=== PATIENT | female | born 1975 | race Caucasian/White ===

== ENCOUNTER → 2017-08-05 | Outpatient (CLI) | payer OTHER ==
[~2017-08-05] MED LIST: CLON0.5T3 PO; FAMO20TA42 PO; HYOS0.1217 PO; NORG1TAB69 PO; PARO40TA2 PO
--- NOTE | 2017-08-06 19:35 | Diagnostic Imaging Report ---
Bilateral screening mammogram 2D views with tomosynthesis The current study was also evaluated with a Computer Aided Detection (CAD) system. INDICATION: Screening. No current complaints stated on the questionnaire. COMPARISON: 05/02/2016. FINDINGS: The breasts are composed of heterogeneously dense parenchyma which may decrease mammographic sensitivity. Allowing for technique and positional differences, no suspicious change is seen. IMPRESSION: Dense breasts with no definite change. ACR BI-RADS Category 2: Benign findings. Result letter will be mailed to the patient. Note: At least 10% of breast cancer is not imaged by mammography. Dictated by: Dictated on workstation # [id number]
== END ==
LOC: RAD 11:00
PROVIDERS: ATTEND Nurse Practitioner Family
DX: Z12.31 Encounter for screening mammogram for malignant neoplasm of breast (principal)
CPT/HCPCS: 77067

== ENCOUNTER → 2018-12-17 | Outpatient (CLI) | payer OTHER ==
--- NOTE | 2018-12-17 19:00 | Diagnostic Imaging Report ---
INDICATION: Routine screening. COMPARISON: Comparison is made with prior mammograms from 08/05/2017 and 05/02/2016. TECHNIQUE: 2D and 3D bilateral screening mammography was performed with computer-aided detection (CAD) system. FINDINGS: Both breasts remain heterogeneously dense, limiting the sensitivity of mammography. No spiculated mass or malignant appearing microcalcifications are seen. Axillae are unremarkable. Intraparenchymal lymph nodes in the upper-outer aspects of both breasts are noted. IMPRESSION: No mammographic features suspicious for malignancy are identified. ACR BI-RADS Category 2: Benign findings. Result letter will be mailed to the patient. Note: At least 10% of breast cancer is not imaged by mammography. Dictated by: Dictated on workstation # [id number]
== END ==
LOC: RAD 11:54
PROVIDERS: ATTEND Registered Nurse
DX: Z12.31 Encounter for screening mammogram for malignant neoplasm of breast (principal)
CPT/HCPCS: 77067

== ENCOUNTER 2019-04-23 16:38 | Emergency (ER) | payer SELFPAY ==
[~2019-04-23] VITALS: Ht 162.6 cm; Wt 63.5 kg
[2019-04-23] MEDS ORDERED: KETOROLAC 30 MG/ML VIAL IVP ONE (17:30)
[2019-04-23] MEDS ORDERED: fentaNYL INJECTION 100 MCG/2 ML AMP IVP ONE (17:30)
--- NOTE | 2019-04-23 17:31 | ED Abdominal Pain ---
General Chief Complaint: Abdominal/GI Problems Stated Complaint: ABD PAIN Nursing Triage Note: AMB TO ROOM WAS SENT FROM [facility] WITH LOW ABD PAIN SINCE 04/12 PER [facility] HER LAB WORK HAS BEEN NEG. SENT TODAY BECAUSE HR WAS 100. PATIENT REPORTS NO VOMITIING TODAY HAD DIARHEA LAST WEEK. Sepsis Screen: No Definite Risk Source of Information: Patient Exam Limitations: No Limitations History of Present Illness Date Seen by Provider: April 23, 2019 Time Seen by Provider: 17:29 Initial Comments To ER from [facility] in [place] with reports of worsening suprapubic abdominal pain since 04/12/19. No fevers or chills. She initially had some diarrhea but that has subsided, bowel movements have returned to normal. She denies any vaginal discharge, she denies any menstrual bleeding, she is on the Depo-Provera shot. She does have a history of anxiety and irritable bowel syndrome but this feels different. Timing/Duration: Constant, Getting Worse Severity/Quality: Moderate Location: Suprapubic Radiation: No Radiation Activities at Onset: None Allergies and Home Medications Allergies Coded Allergies: No Known Drug Allergies (Unverified , 01/09/13) Home Medications Clonazepam 0.5 Mg Tablet, 0.5-1 EACH PO BID, (Reported) Dicyclomine HCl 20 Mg Tablet, 20 MG PO TID Prescribed by: AVE GURROLA on 04/23/191910 Famotidine 20 Mg Tab.chew, 20 MG PO BID, (Reported) Hyoscyamine Sulfate 0.125 Mg/Tab Tab.rapdis, 1-2 EACH PO Q6HR PRN, (Reported) Norgestimate-Ethinyl Estradiol 1 Each Tablet, 1 EACH PO DAILY, (Reported) Paroxetine Hcl 40 Mg Tablet, 80 MG PO DAILY, (Reported) Patient Home Medication List Home Medication List Reviewed: Yes Review of Systems Review of Systems Constitutional: see HPI EENTM: No Symptoms Reported Respiratory: No Symptoms Reported Cardiovascular: No Symptoms Reported Gastrointestinal: See HPI, Abdominal Pain, Diarrhea, Nausea; Denies Vomiting Genitourinary: No Symptoms Reported Musculoskeletal: no symptoms reported Skin: no symptoms reported Psychiatric/Neurological: No Symptoms Reported Endocrine: No Symptoms Reported Past Cfjizsr-Bcfqga-Rdumgn Hx Patient Social History Alcohol Use: Denies Use Recreational Drug Use: No Smoking Status: Never a Smoker Recent Foreign Travel: No Contact w/Someone Who Travel: No Recent Infectious Disease Expo: No Past Medical History Surgeries: Yes (LEEP) Cardiac: No Neurological: No Gastrointestinal: Yes ("NERVOUS STOMACH") Psychosocial: Yes Anxiety Physical Exam Vital Signs Vital Signs - First Documented 04/23/19 16:55 Temp 98.2 Pulse 86 Resp 18 B/P (MAP) 111/72 (85) O2 Delivery Room Air Capillary Refill : Less Than 3 Seconds Height/Weight/BMI Height: 5'4.00" Weight: 140lbs. oz. 63.593048hm; BMI Method:Stated General Appearance: WD/WN, no apparent distress HEENT: PERRL/EOMI, normal ENT inspection Respiratory: no respiratory distress, no accessory muscle use Cardiovascular: regular rate, rhythm, no murmur Gastrointestinal: normal bowel sounds, soft, tenderness Extremities: normal range of motion, non-tender Neurologic/Psychiatric: alert, normal mood/affect, oriented x 3 Skin: normal color, warm/dry Progress/Results/Core Measures Results/Orders Lab Results Laboratory Tests Test 04/23/19 17:19 04/23/19 17:55 Range/Units Urine Color YELLOW Urine Clarity CLEAR Urine pH 7 5-9 Urine Specific Mcdowell 1.005 L 1.016-1.022 Urine Protein NEGATIVE NEGATIVE Urine Glucose (UA) NEGATIVE NEGATIVE Urine Ketones 1+ H NEGATIVE Urine Nitrite NEGATIVE NEGATIVE Urine Bilirubin NEGATIVE NEGATIVE Urine Urobilinogen NORMAL NORMAL MG/DL Urine Leukocyte Esterase NEGATIVE NEGATIVE Urine RBC (Auto) 1+ H NEGATIVE Urine RBC 0-2 /HPF Urine WBC NONE /HPF Urine Squamous Epithelial Cells 2-5 /HPF Urine Crystals NONE /LPF Urine Bacteria NEGATIVE /HPF Urine Casts NONE /LPF Urine Mucus NEGATIVE /LPF Urine Culture Indicated NO Urine Test NEGATIVE NEGATIVE White Blood Count 7.2 4.3-11.0 10^3/uL Red Blood Count 4.26 L 4.35-5.85 10^6/uL Hemoglobin 13.5 11.5-16.0 G/DL Hematocrit 38 35-52 % Mean Corpuscular Volume 90 80-99 FL Mean Corpuscular Hemoglobin 32 25-34 PG Mean Corpuscular Hemoglobin Concent 35 32-36 G/DL Red Cell Distribution Width 11.5 10.0-14.5 % Platelet Count 241 130-400 10^3/uL Mean Platelet Volume 10.0 7.4-10.4 FL Neutrophils (%) (Auto) 60 42-75 % Lymphocytes (%) (Auto) 33 12-44 % Monocytes (%) (Auto) 7 0-12 % Eosinophils (%) (Auto) 0 0-10 % Basophils (%) (Auto) 0 0-10 % Neutrophils # (Auto) 4.3 1.8-7.8 X 10^3 Lymphocytes # (Auto) 2.4 1.0-4.0 X 10^3 Monocytes # (Auto) 0.5 0.0-1.0 X 10^3 Eosinophils # (Auto) 0.0 0.0-0.3 10^3/uL Basophils # (Auto) 0.0 0.0-0.1 10^3/uL Sodium Level 140 135-145 MMOL/L Potassium Level 4.0 3.6-5.0 MMOL/L Chloride Level 108 H 98-107 MMOL/L Carbon Dioxide Level 21 21-32 MMOL/L Anion Gap 11 5-14 MMOL/L Blood Urea Nitrogen 8 7-18 MG/DL Creatinine 1.05 0.60-1.30 MG/DL Estimat Glomerular Filtration Rate 58 BUN/Creatinine Ratio 8 Glucose Level 90 70-105 MG/DL Calcium Level 9.7 8.5-10.1 MG/DL Corrected Calcium 9.3 8.5-10.1 MG/DL Total Bilirubin 1.0 0.1-1.0 MG/DL Aspartate Amino Transf (AST/SGOT) 19 5-34 U/L Alanine Aminotransferase (ALT/SGPT) 12 0-55 U/L Alkaline Phosphatase 67 40-136 U/L Total Protein 7.4 6.4-8.2 GM/DL Albumin 4.5 3.2-4.5 GM/DL My Orders Orders - AVE GURROLA [employer] OFFICER Cbc With Automated Diff (04/23/19 17:28) Comprehensive Metabolic Panel (04/23/19 17:28) Ua Culture If Indicated (04/23/19 17:28) Ed Iv/Invasive Line Start (04/23/19 17:28) Ct Abdomen/Pelvis W (04/23/19 17:28) Ketorolac Injection (Toradol Injection) (04/23/19 17:30) Fentanyl Injection (Sublimaze Injection (04/23/19 17:30) Hcg,Qualitative Urine (04/23/19 17:50) Lorazepam Injection (Ativan Injection) (04/23/19 18:15) Iohexol Injection (Omnipaque 350 Mg/Ml 1 (04/23/19 18:30) Received Contrast (Hold Metformin- Contr (04/23/19 18:30) Sodium Chloride Flush (Catheter Flush Sy (04/23/19 18:30) Ns (Ivpb) (Sodium Chloride 0.9% Ivpb Bag (04/23/19 18:30) Medications Given in ED Current Medications Medications Dose Ordered Sig/Yobani Route Start Time Stop Time Status Last Admin Dose Admin Fentanyl Citrate 50 mcg ONCE ONCE IVP 04/23/19 17:30 04/23/19 17:31 DC 04/23/19 17:46 50 MCG Iohexol 100 ml ONCE ONCE IV 04/23/19 18:30 04/23/19 18:31 DC 04/23/19 18:49 80 ML Ketorolac Tromethamine 15 mg ONCE ONCE IVP 04/23/19 17:30 04/23/19 17:31 DC 04/23/19 17:45 15 MG Lorazepam 0.5 mg ONCE PRN IVP 04/23/19 18:15 04/23/19 18:15 0.5 MG Sodium Chloride 10 ml NEEDED PRN IV 04/23/19 18:30 04/23/19 18:49 10 ML Sodium Chloride 100 ml ONCE ONCE IV 04/23/19 18:30 04/23/19 18:31 DC 04/23/19 18:49 84 ML Vital Signs/I&O 04/23/19 16:55 Temp 98.2 Pulse 86 Resp 18 B/P (MAP) 111/72 (85) O2 Delivery Room Air Blood Pressure Mean: 85 Departure Communication (Admissions) 1918-reports that she is feeling overall better. I suspect this is an exacerbation of her irritable bowel syndrome. She has never tried dicyclomine before so I'll give her a prescription for that. Impression Primary Impression: abdominal pain Additional Impression: Anxiety Disposition: 01 HOME, SELF-CARE Condition: Stable Departure-Patient Inst. Decision time for Depature: 19:10 Referrals: [facility] (PCP/Family) Primary Care Physician Patient Instructions: Irritable Bowel Syndrome (DC) Add. Discharge Instructions: 1. Take the new medication as directed. Do not take the Levsin, take the dicyclomine. Follow-up with your doctor next week All discharge instructions reviewed with patient and/or family. Voiced understanding. Scripts Dicyclomine HCl (Dicyclomine HCl) 20 Mg Tablet 20 MG PO TID, #30 TAB Prov: AVE GURROLA APRN 04/23/19 [address] GURROLA APRN April 23, 2019 17:31
[2019-04-23 17:35] LABS: BILIRUBIN,URINE NEGATIVE (NEGATIVE); CLARITY,URINE CLEAR; COLOR,URINE YELLOW; GLUCOSE, URINE (UA) NEGATIVE (NEGATIVE); KETONES,URINE 1+ (NEGATIVE); LEUKOCYTE ESTERASE ,URINE NEGATIVE (NEGATIVE); NITRITE,URINE NEGATIVE (NEGATIVE); PH,URINE 7 (5-9); PROTEIN,URINE NEGATIVE (NEGATIVE); UROBILINOGEN,URINE NORMAL (NORMAL)
[2019-04-23 17:49] LABS: BACTERIA,URINE NEGATIVE /HPF; RBC,URINE 0-2 /HPF
--- NOTE | 2019-04-23 17:51 | NUR ---
LAB HERE TO DRAW BLOOD.
[2019-04-23 18:03] LABS: BASOPHILS % (AUTO) 0 % (0-10); EOSINOPHILS % (AUTO) 0 % (0-10); HEMATOCRIT 38 % (35-52); HEMOGLOBIN 13.5 G/DL (11.5-16.0); LYMPHOCYTES # (AUTO) 2.4 X 10^3 (1.0-4.0); LYMPHOCYTES % (AUTO) 33 % (12-44); MEAN CORPUSCULAR HEMOGLOBIN 32 PG (25-34); MEAN CORPUSCULAR HGB CONC 35 G/DL (32-36); MEAN CORPUSCULAR VOLUME 90 FL (80-99); MONOCYTES # (AUTO) 0.5 X 10^3 (0.0-1.0); MONOCYTES % (AUTO) 7 % (0-12); NEUTROPHILS # (AUTO) 4.3 X 10^3 (1.8-7.8); NEUTROPHILS % (AUTO) 60 % (42-75); PLATELET COUNT 241 10^3/uL (130-400); RED CELL DISTRIBUTION WIDTH 11.5 % (10.0-14.5); WHITE BLOOD COUNT 7.2 10^3/uL (4.3-11.0)
--- NOTE | 2019-04-23 18:10 | NUR ---
FAMILY TO DESK STATES PATIENT IS FEELING ANXIOUS AND WOULD LIKE SOMETHING FOR HER NERVES.
[2019-04-23] MEDS ORDERED: LORazepam INJ 2 MG/ML (ATIVAN) VIAL IVP PRN (18:15)
--- NOTE | 2019-04-23 18:20 | NUR ---
TO CT PER W/C
[2019-04-23 18:24] LABS: ALBUMIN 4.5 GM/DL (3.2-4.5); CALCIUM 9.7 MG/DL (8.5-10.1); CREATININE SERUM 1.05 MG/DL (0.60-1.30); TOTAL PROTEIN 7.4 GM/DL (6.4-8.2)
[2019-04-23] MEDS ORDERED: NS 100 ML (IVPB) BAG IV ONE (18:30)
[2019-04-23] MEDS ORDERED: HOLD METFORMIN - RECEIVED CONTRAST 20 ML VIAL IV SCH (18:30)
[2019-04-23] MEDS ORDERED: IOHEXOL 350 MG/ML 100 ML (OMNIPAQUE 350) VIAL IV ONE (18:30)
[2019-04-23] MEDS ORDERED: CATHETER FLUSH 10 ML SYR IV PRN (18:30)
--- NOTE | 2019-04-23 19:05 | Diagnostic Imaging Report ---
PROCEDURE: CT abdomen and pelvis with contrast. TECHNIQUE: Multiple contiguous axial images were obtained through the abdomen and pelvis after administration of intravenous contrast. Auto Exposure Controls were utilized during the CT exam to meet ALARA standards for radiation dose reduction. INDICATION: Abdominal pain, vomiting, diarrhea x10-11 days. CORRELATION STUDY: None. FINDINGS: LOWER THORAX: Clear. LIVER: Unremarkable. GALLBLADDER: Present and unremarkable. No bile duct dilatation. SPLEEN: Unremarkable. PANCREAS: Unremarkable. ADRENAL GLANDS: Unremarkable. KIDNEYS: Normal configuration. No calcification or obstruction. ABDOMINAL AORTA: Unremarkable, nonaneurysmal. GASTROINTESTINAL TRACT: Stomach is relatively collapsed. Small bowel without obstruction. Colon demonstrates mild severity fecal retention. No obstruction or definitive inflammatory changes. The appendix is not well visualized but what may be the appendix has an unremarkable appearance. No definitive right lower quadrant inflammatory changes. No abdominal ascites or free air. URINARY BLADDER: Unremarkable. REPRODUCTIVE: Uterus unremarkable. Probable small right ovarian cyst. OSSEOUS STRUCTURES: No acute abnormality. OTHER: None. IMPRESSION: 1. No CT findings to suggest acute abnormality about the abdomen and/or pelvis. The appendix is not definitively localized and therefore not cleared. Dictated by: Dictated on workstation # [id number]
[2019-04-23] MEDS ORDERED: DICY20TA10 PO (19:11)
[2019-04-23 19:30] VITALS: BP 112/79
== END 2019-04-23 19:32 | disposition home or self-care (01) ==
LOC: EDUNIT# 16:38 → ER 16:39
DX: R10.30 Lower abdominal pain, unspecified (principal); F41.9 Anxiety disorder, unspecified; K58.9 Irritable bowel syndrome, unspecified; Z98.890 Other specified postprocedural states
CPT/HCPCS: 36415; 74177; 80053; 81000; 84703; 85025; 96374; 96375

== ENCOUNTER → 2019-05-04 | Outpatient (CLI) | payer OTHER ==
[~2019-05-04] MED LIST changes: +DICY20TA10 PO
--- NOTE | 2019-05-04 23:13 | Diagnostic Imaging Report ---
PROCEDURE: US NONOB transvaginal. TECHNIQUE: Multiple real-time grayscale images were obtained of the pelvis in various projections endovaginally. INDICATION: Lower abdominal pain There are no prior ultrasound examinations available for comparison. The CT abdomen/pelvis exam of 04/23/2019 failed to show any sign of an acute abnormality. On this study, the uterus is nongravid and not enlarged. The endometrial lining is not thickened measuring 2 MM.. Neither ovary was identified. The adnexa were partially obscured by bowel gas. There is no solid pelvic mass or free fluid collection evident. IMPRESSION: 1. There is no evidence for an acute pelvic abnormality. 2. The ovaries could not be visualized. Dictated by: Dictated on workstation # [id number]
== END ==
LOC: RAD 14:30
PROVIDERS: ATTEND Nurse Practitioner Family
DX: R10.30 Lower abdominal pain, unspecified (principal)
CPT/HCPCS: 76830

== ENCOUNTER → 2019-05-19 | Outpatient (CLI) | payer OTHER ==
--- NOTE | 2019-05-19 14:49 | Diagnostic Imaging Report ---
PROCEDURE: US Gallbladder. TECHNIQUE: Multiple real-time grayscale images were obtained over the right upper quadrant in various projections. INDICATION: Nausea, vomiting, and abdominal pain. FINDINGS: The liver is normal in size at 15.1 cm. No discrete mass is identified. The portal vein is patent and shows normal direction of flow. The gallbladder is without stones or sludge. No wall thickening or biliary ductal dilatation is seen. The pancreas is unremarkable. Right kidney is without calculi or hydronephrosis. There is no ascites. IMPRESSION: No evidence of cholelithiasis or acute cholecystitis. Dictated by: Dictated on workstation # [id number]
== END ==
LOC: RAD 12:00
PROVIDERS: ATTEND Surgery
DX: R10.9 Unspecified abdominal pain (principal); R11.2 Nausea with vomiting, unspecified
CPT/HCPCS: 76705

== ENCOUNTER → 2019-05-27 | Outpatient (CLI) | payer OTHER ==
[~2019-05-27] MED LIST changes: +ACHD5005 PO; +CATHETER FLUSH 10 ML SYR IV PRN; +MEDR150V IM
--- NOTE | 2019-05-27 13:11 | Diagnostic Imaging Report ---
INDICATION: Biliary dyskinesia. COMPARISON: None. Tc-99m Choletec 4.91 mCi IV followed by 8 ounces of Ensure. FINDINGS: The upper abdomen was imaged for 60 minutes with the gamma camera. There is normal appearance of activity in the liver. There is activity in the gallbladder by 60 minutes. After 60 minutes, the patient received 8 ounces of oral Ensure. After 60 minutes of additional imaging, the gallbladder ejection fraction was calculated to be 90% which is normal. IMPRESSION: Normal hepatobiliary study with GBEF of 90%. Dictated by: Dictated on workstation # [id number]
== END ==
LOC: CARD 09:01
PROVIDERS: ATTEND Surgery
DX: K82.8 Other specified diseases of gallbladder (principal)
CPT/HCPCS: 78227

== ENCOUNTER → 2019-06-02 | Outpatient (CLI) | payer OTHER ==
[~2019-06-02] MED LIST changes: -CATHETER FLUSH 10 ML SYR IV PRN
== END | disposition home or self-care (01) ==
LOC: PREOP 10:42
PROVIDERS: ATTEND Surgery
DX: Z01.818 Encounter for other preprocedural examination (principal)

== ENCOUNTER 2019-06-03 08:24 | Day surgery (SDC) | payer OTHER ==
[2019-06-03] VITALS (15 sets, daily range): BP systolic 97–114; BP diastolic 48–82
[~2019-06-03] VITALS: Ht 162.6 cm; Wt 61.2 kg
[~2019-06-03 08:24] MED LIST changes: -ACHD5005 PO; -MEDR150V IM
[2019-06-03] MEDS ORDERED: MEDR150V IM (09:02)
[2019-06-03] MEDS ORDERED: IOPAMIDOL 61% 30 ML (ISOVUE 300) VIAL IV ONE (09:04)
[2019-06-03] MEDS ORDERED: BUP/EPI 0.5% 1:200,000 (SENSORCAINE) 30 ML VIAL ONE (09:04)
[2019-06-03] MEDS ORDERED: ceFAZolin 2 GM/50 ML NS 50 ML ONE (09:12)
[2019-06-03] MEDS ORDERED: ROCURONIUM 10 MG/ML 5 ML SYRINGE IV ONE (09:19)
[2019-06-03] MEDS ORDERED: ONDANSETRON 4 MG/2 ML (SDV) Z0FRAN ONE (09:19)
[2019-06-03] MEDS ORDERED: DEXAMETHASONE 10 MG/ML (DECADRON) 1 ML VIAL ONE (09:19)
[2019-06-03] MEDS ORDERED: GLYCOPYRROLATE 0.2 MG/ML (ROBINUL) 2 ML VIAL ONE (09:19)
[2019-06-03] MEDS ORDERED: SEVOFLURANE (ULTANE) 15 ML INHAL SOLN ONE (09:19)
[2019-06-03] MEDS ORDERED: NEOSTIGMINE 3 MG/3 ML VIAL ONE (09:19)
[2019-06-03] MEDS ORDERED: fentaNYL INJECTION 100 MCG/2 ML AMP ONE (09:19)
[2019-06-03] MEDS ORDERED: proPOfol 200 MG/20 ML (DIPRIVAN) VIAL IV ONE (09:19)
[2019-06-03] MEDS ORDERED: MIDAZOLAM 2 MG/2 ML (VERSED) VIAL ONE (09:19)
[2019-06-03] MEDS ORDERED: LIDOCAINE PF 2% 5 ML (XYLOCAINE) VIAL ONE (09:19)
--- NOTE | 2019-06-03 09:25 | Progress Note-Pre Operative ---
Pre-Operative Progress Note H&P Reviewed The H&P was reviewed, patient examined and no changes noted. Time Seen by Provider: 09:21 Date H&P Reviewed: Jun 03, 2019 Time H&P Reviewed: 09:22 Pre-Operative Diagnosis: Biliary Dyskinesia KODI BANKS DO Jun 03, 2019 09:25
[2019-06-03] MEDS: LACTATED RINGERS 1,000 ML IV PRN ×2 (09:30→10:05)
[2019-06-03] MEDS ORDERED: morphine INJ 10 MG/ML 1ML (SYR OR VIAL) ONE (10:31)
--- NOTE | 2019-06-03 10:33 | Progress Note-Post Operative ---
Post-Operative Progess Note Surgeon (s)/Corrections Lieutenant (s) Surgeon KODI BANKS DO Corrections Lieutenant: Isaias Pre-Operative Diagnosis Biliary Dyskinesia Post-Operative Diagnosis same Procedure & Operative Findings Date of Procedure 06/03/19 Procedure Performed/Findings Lap Aruan with IOC Anesthesia Type GET Estimated Blood Loss Estimated blood loss (mL): scant Specimens/Packing Specimens Removed GB and contents KODI BANKS DO Jun 03, 2019 10:33
[2019-06-03] MEDS ORDERED: ACHD5005 PO (10:35)
--- NOTE | 2019-06-03 10:36 | Discharge Inst-Surgical ---
Discharge Inst-Surgical Depart Medication/Instructions New, Converted or Re-Newed RX: RX Given to Pt/Family Patient Instructions Follow up Appt: Make appointment for 1 week. [phone] Instructions: No lifting greater than 20 pounds. No strenuous activity. May shower in 24 hours, no tub bath or soaking. Use incentive spirometer at home as directed. No Smoking Skin/Wound Care: May remove bandages in am. You need to leave the Dermabond on incision it will fall off on it's own. Symptoms to Report: Appetite Changes, Extremity Discoloration, Numbness/Tingling, Swelling Increased, Bleeding Excessive, Eyesight Changes, Pain Increased, Urine Color Change, Constipation(Persistent), Fever over 101 degree F, Pain/Pressure in chest, Urinating Difficulty, Cough Up/Vomit Blood, Heart Beat Irreg/Pounding, Pain/Pressure in jaw, Cramps in feet or legs, Lightheadedness, Pain/Pressure in shoulder, Diarrhea(Persistent), Memory Changes Suddenly, Questions/Concerns, Weight gain consecutive days, Dizziness/Fainting, Nausea/Vomiting, Shortness of Breath, Weight gain over 2 pounds If questions or concerns contact your physician Or seek help at emergency department. Activity Activity as Tolerated: Yes Activity Instructions: Avoid Stress to Incision Driving Instructions: No Driving/Refer to Diet Discharge Diet: Avoid Fatty Foods, Low Fat/Low Cholesterol Diet After 24 Hours: Clear Liquid if Nauseous If Any Problems/Questions/Issu: Contact Your Physician, Go to Emergency Room Skin/Wound Care Infection Signs and Symptoms: Increased Redness, Foul Odor of Wound, Increased Drainage, Skin Itchy or Has a Rash, Increased Swelling, Temperature Above 101 F Wound Care Comment: Heating pad to neck or shoulder tonight for pain Bathing Instructions: Shower Stitches/[place]/Dermabond Dis: Dermabond Ice Pack: Ice On and Off Site KODI BANKS DO Jun 03, 2019 10:36
[2019-06-03] MEDS ORDERED: HYDROmorphone 2 MG/ML VIAL (DILAUDID) IV ONE (10:45)
[2019-06-03] MEDS ORDERED: morphine INJ 10 MG/ML 1ML (SYR OR VIAL) IVP ONE (10:45)
[2019-06-03] MEDS ORDERED: ONDANSETRON 4 MG/2 ML (SDV) Z0FRAN IVP PRN (10:45)
--- NOTE | 2019-06-03 12:00 | NUR ---
PT RETURNED FROM RECOVERY WITH FAST BREATHING (HYPERVENTILATING), CRYING, AND MOANING "IT HURTS SO BAD". PT'S ABDOMEN WAS SOFT, PROCEDURAL SITES CLEAN AND DRY, NO DRAINAGE NOTED. TALKED PT THROUGH SLOW, DEEP, RELAXING BREATHS, HELPED PT CHANGE POSITION AND GOT HER WARM BLANKETS. PT'S BREATHING SLOWED TO 16-18, BUT SHE STATED SHE WAS STILL HURTING. CALLED DR. BANKS AND RECEIVED VERBAL TELEPHONE ORDER FOR HYDROCODONE 5/325 PO TWO TABLETS, ONCE.
[2019-06-03] MEDS ORDERED: HYDROcodone/APAP 5 MG/325 MG (LORTAB) TAB ONE (12:09)
[2019-06-03] MEDS ORDERED: HYDROcodone/APAP 5 MG/325 MG (LORTAB) TAB PO ONE (12:15)
--- NOTE | 2019-06-03 12:35 | NUR ---
CALLED RT AT THIS TIME AND THEY STATED THEY WOULD BE HERE SHORTLY FOR I.S. TEACHING
--- NOTE | 2019-06-03 12:49 | Anesthesia-General Post-Op ---
General Patient Condition Mental Status/LOC: Same as Preop Cardiovascular: Satisfactory Nausea/Vomiting: Absent Respiratory: Satisfactory Pain: Controlled Complications: Absent Post Op Complications Complications None Follow Up Care/Instructions Patient Instructions None needed. Anesthesia/Patient Condition Patient Condition Patient is doing well, no complaints, stable vital signs, no apparent adverse anesthesia problems. No complications reported per nursing. RIKI CANELA CRNA Jun 03, 2019 12:49
--- NOTE | 2019-06-03 13:00 | NUR ---
PT GOT UP TO GO TO BATHROOM, PT IS ABLE TO MOVE AND STAND WITHOUT ANY FACIAL GRIMACING OR MOANING. PT AMBULATED MCC TO BATHROOM WITH SLOW, STEADY GAIT AND THEN STATED "I'M SUPER LIGHT HEADED, I DONT FEEL GOOD". TOOK PT TO BATHROOM IN WC AND PT URINATED WITHOUT COMPLICATION. PT TAKEN BACK TO BED VIA WC AND LAID BACK DOWN, HOOKED TO [facility] AND VSS. MARLA.
--- NOTE | 2019-06-03 13:20 | NUR ---
RT AT BEDSIDE FOR I.S. TEACHING
--- NOTE | 2019-06-03 13:43 | Diagnostic Imaging Report ---
Indication: Fluoroscopy during intraoperative cholangiogram. Fluoroscopy was provided in the OR during intraoperative cholangiogram. 12 seconds of fluoroscopy was utilized. Images demonstrate contrast being injected via the cystic duct remnant. Intrahepatic and extrahepatic bile ducts are unremarkable. No filling defects are seen. There is contrast flowing into the duodenum. Impression: Fluoroscopy during intraoperative cholangiogram. Dictated by: Dictated on workstation # [id number]
--- NOTE | 2019-06-03 14:18 | NUR ---
PT IS AA&OX4, VSS, NADN. SITTING UP IN BED, TALKING TO STAFF, FAMILY, AND ANSWERING QUESTIONS APPROPRIATELY. NO FACIAL GRIMACING, NO MOANING FROM PAIN. PT STATES "I JUST DONT FEEL GOOD. I WANT TO LAY HERE JUST A LITTLE BIT LONGER.". GAVE PT FRESH WATER AND A SNO-CONE, PT TOLERATING BOTH WITHOUT COMPLICATION.
--- NOTE | 2019-06-03 14:25 | NUR ---
PT URINATED AGAIN, WENT TO BATHROOM VIA WC, AMBULATED FROM BED TO WHEELCHAIR AND BACK WITH STEADY GAIT. PT STATES "I'M READY TO TRY AND GET DRESSED NOW"
--- NOTE | 2019-06-03 14:50 | OPERATIVE REPORT ---
DATE OF SERVICE: PREOPERATIVE DIAGNOSIS: Biliary dyskinesia. POSTOPERATIVE DIAGNOSIS: Biliary dyskinesia. PROCEDURE: Laparoscopic cholecystectomy, intraoperative cholangiogram. SURGEON: Rosalio Rizo DO NET FISHER: Casey Esparza DO. ANESTHESIA: General endotracheal tube. SPECIMEN: Gallbladder and contents. BLOOD LOSS: Scant. FLUIDS: Per anesthesia. POSTOPERATIVE CONDITION: Stable. INDICATION FOR PROCEDURE: The patient is a 43-year-old female who has been having right upper quadrant abdominal pain and had a HIDA scan, which showed an ejection fraction of 90%, which is actually hyperfunctioning gallbladder, biliary dyskinesia. FINDINGS: The patient had some adhesions in gallbladder, which usually indicate previous gallbladder attacks, removed without any difficulty. PROCEDURE NOTE: After informed consent was obtained, the patient was brought to the operating room, placed on the table in supine position. She was sterilely prepped and draped in normal fashion. Local lidocaine was used to infiltrate the skin above the umbilicus. I made the incision with #15 blade, carried down through the skin into subcutaneous tissue, deepened down to subcutaneous tissue with Bovie electrocautery down to the fascia. Fascia incised with Bovie electrocautery and bluntly entered the abdomen, swept a finger around, placed 11 mm trocar port under direct visualization, created pneumoperitoneum and then placed 3 more ports in normal fashion using local lidocaine, 11 blade for stab incision and the VersaStep system, all done under direct visualization, one subxiphoid and two in the right lower quadrant. The patient was then placed in reverse Trendelenburg, slightly rotated left, able to visualize the gallbladder, grasped at the fundus, taken in superior direction and then grasped down the Omar's pouch and pulled in inferolateral direction and there were some adhesions. These were carefully taken down with Bovie electrocautery as well as some blunt dissection. Immediately upon pulling laterally, could see the artery coming across, able to get around and under the artery with a [place], placed 2 clips proximally and 1 distally and then cut with Metzenbaum scissors, then started dissecting out the cystic duct, able to get around the cystic duct and placed 1 clip distally and then cut custodial through Metzenbaum scissors, placed a cholangiogram catheter and then shot a cholangiogram. Good spillage of dye down the cystic duct into the common bile duct and down in the small intestine as well as up into common hepatic and right and left hepatics, then removed the cholangiogram catheter, placed 2 clips proximally on the cystic duct and then cut the cystic duct with Metzenbaum scissors and then removed the gallbladder from the bed of liver with L-hook cautery, which was completely removed, able to grasp this and pulled this right through the supraumbilical port, then copiously irrigated with normal saline, suctioned this out, took a picture of bed of the liver, there was no bleeding. At this point, then placed the patient supine, suctioned out all the fluid and all the and removed the ports under direct visualization, then closed the supraumbilical incision, closing the fascia with 0 Vicryl suture previously placed. Copiously irrigated all incisions with normal saline and then closed the three small 5 mm incisions with a single interrupted 4-0 undyed Monocryl subcuticular stitch. Closed supraumbilical incision with 3 interrupted 4-0 undyed Monocryl subcuticular stitches. Area was cleaned and dried and Dermabond placed as well as Band-Aids. The patient then transferred to recovery room in stable condition. Sponge, instrument and needle count correct at the end of the case. Dr. Esparza assisted in this case helping to make incisions, close incisions, identify anatomy, hold anatomy out of way. Job ID: [id number] DocumentID: [id number] Dictated Date: 06/03/2019 10:50:26 Manager Lpn Date: 06/03/2019 14:49:54 Dictated By: ROSALIO RIZO DO
== END 2019-06-03 14:40 | disposition home or self-care (01) ==
LOC: SDC 08:24
PROVIDERS: ATTEND Surgery
DX: K81.1 Chronic cholecystitis (principal); K82.8 Other specified diseases of gallbladder; Z11.2 Encounter for screening for other bacterial diseases; Z87.891 Personal history of nicotine dependence; F41.9 Anxiety disorder, unspecified; Z79.899 Other long term (current) drug therapy
CPT/HCPCS: 87081; 94664

== ENCOUNTER → 2021-04-28 | Outpatient (CLI) | payer OTHER ==
[~2021-04-28] MED LIST changes: +ACHD5005 PO; +MEDR150V IM
--- NOTE | 2021-04-28 13:44 | Diagnostic Imaging Report ---
INDICATION: Routine screening. Comparison is made with prior mammogram 12/17/2018 and 08/05/2017. 2-D and 3-D bilateral screening mammography was performed with CAD. Both breasts are heterogeneously dense, limiting the sensitivity of mammography. The parenchymal pattern is stable. No mass or malignant appearing microcalcifications are seen. Axillae are unremarkable. IMPRESSION: BI-RADS Category 1 No mammographic features suspicious for malignancy are identified. ACR BI-RADS Category 1: Negative. Result letter will be mailed to the patient. Note: At least 10% of breast cancer is not imaged by mammography. Dictated by: Dictated on workstation # [id number]
== END ==
LOC: RAD 10:55
PROVIDERS: ATTEND Nurse Practitioner Family
DX: Z12.31 Encounter for screening mammogram for malignant neoplasm of breast (principal)
CPT/HCPCS: 77063; 77067

== ENCOUNTER 2021-05-19 14:24 | Emergency (ER) | payer OTHER ==
[~2021-05-19] VITALS: Ht 162.6 cm; Wt 73.9 kg
[2021-05-19] MEDS ORDERED: HYOSCYAMINE 0.125 MG (LEVSIN) TAB PO ONE (14:45)
[2021-05-19] MEDS ORDERED: KETOROLAC 30 MG/ML VIAL IVP ONE (14:45)
--- NOTE | 2021-05-19 14:45 | ED Abdominal Pain ---
General Stated Complaint: ABDOMINAL PAIN Source of Information: Patient Exam Limitations: No Limitations (AVE GURROLA APRN) History of Present Illness Date Seen by Provider: May 19, 2021 Time Seen by Provider: 14:43 Initial Comments To ER with suprapubic and bilateral lower quadrant abdominal pain onset yesterday. She had this previously and it was thought to be irritable bowel syndrome then she ended up having her gallbladder out and this improved. However over the past few days it has recurred. Began after a bowel movement this morning. No dysuria. She gets these issues a couple of times a week. She has had some nausea. 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 She had labs drawn this morning but those are not yet resulted Timing/Duration: 1-2 Days Severity/Quality: Moderate Location: Suprapubic Radiation: No Radiation Activities at Onset: None (AVE GURROLA APRN) Allergies and Home Medications Allergies Coded Allergies: dicyclomine (Verified Allergy, Severe, 06/03/19) blurry vision, very dizzy, hallucinations Home Medications Clonazepam 0.5 Mg Tablet, 0.5-1 EACH PO BID, (Reported) Hydrocodone Bit/Acetaminophen 1 Tab Tab, 1 TAB PO Q6H PRN for PAIN-MODERATE Prescribed by: KODI BANKS on 06/03/19 1035 Hyoscyamine Sulfate 0.125 Mg/Tab Tab.rapdis, 1-2 EACH PO Q6HR PRN, (Reported) Polyethylene Glycol 3350 17 Gm Powd.pack, 17 GM PO BID PRN for constipation Prescribed by: AVE GURROLA on 05/19/21 1613 Patient Home Medication List Home Medication List Reviewed: Yes (AVE GURROLA APRN) Review of Systems Review of Systems Constitutional: see HPI EENTM: No Symptoms Reported Respiratory: No Symptoms Reported Cardiovascular: No Symptoms Reported Gastrointestinal: See HPI, Abdominal Pain, Nausea Genitourinary: No Symptoms Reported Musculoskeletal: no symptoms reported Skin: no symptoms reported Psychiatric/Neurological: No Symptoms Reported Endocrine: No Symptoms Reported (AVE GURROLA APRN) Past Wjohdah-Shqsby-Xbtacs Hx Patient Social History 2nd Hand Smoke Exposure: No Recent Hopitalizations: No (AVE GURROLA APRN) Seasonal Allergies Seasonal Allergies: No (AVE GURROLA APRN) Past Medical History Surgeries: Yes (LEEP) Respiratory: No Currently Using CPAP: No Cardiac: No Neurological: No Female Reproductive Disorders: Ovarian Cyst Sexually Transmitted Disease: No (HPV) HIV/AIDS: No Genitourinary: No Gastrointestinal: Yes ("NERVOUS STOMACH") Musculoskeletal: No Endocrine: No HEENT: No Cancer: Yes Cervical Did You Recieve Any Treatments: Yes What Type of Treatment Did You: Surgical Intervention Psychosocial: Yes Anxiety, Depression Integumentary: No Blood Disorders: No (AVE GURROLA APRN) Physical Exam Vital Signs Vital Signs - First Documented 05/19/21 14:48 Temp 36.6 Pulse 91 Resp 16 B/P (MAP) 108/85 (93) Pulse Ox 100 O2 Delivery Room Air (JUANITA JACKMAN MD) Vital Signs Capillary Refill : (AVE GURROLA APRN) Height/Weight/BMI Height: 5'4.00" Weight: 135lbs. 0.0oz. 61.483000vm; 23.2 BMI Method:Stated General Appearance: WD/WN, no apparent distress HEENT: PERRL/EOMI Neck: non-tender, full range of motion Respiratory: no respiratory distress, no accessory muscle use Gastrointestinal: normal bowel sounds, soft, tenderness Extremities: normal range of motion, non-tender Neurologic/Psychiatric: alert, normal mood/affect, oriented x 3 Skin: normal color, warm/dry (AVE GURROLA APRN) Progress/Results/Core Measures Results/Orders Lab Results Laboratory Tests Test 05/19/21 14:30 05/19/21 14:48 Range/Units Urine Color YELLOW Urine Clarity CLEAR Urine pH 6.0 5-9 Urine Specific [place] <=1.005 1.016-1.022 Urine Protein NEGATIVE NEGATIVE Urine Glucose (UA) NEGATIVE NEGATIVE Urine Ketones NEGATIVE NEGATIVE Urine Nitrite NEGATIVE NEGATIVE Urine Bilirubin NEGATIVE NEGATIVE Urine Urobilinogen 0.2 < = 1.0 MG/DL Urine Leukocyte Esterase NEGATIVE NEGATIVE Urine RBC (Auto) NEGATIVE NEGATIVE Urine RBC RARE /HPF Urine WBC RARE /HPF Urine Squamous Epithelial Cells 2-5 /HPF Urine Crystals NONE /LPF Urine Bacteria TRACE /HPF Urine Casts NONE /LPF Urine Mucus NEGATIVE /LPF Urine Other N /HPF Urine Culture Indicated NO White Blood Count 6.7 4.3-11.0 10^3/uL Red Blood Count 4.04 3.80-5.11 10^6/uL Hemoglobin 13.1 11.5-16.0 g/dL Hematocrit 39 35-52 % Mean Corpuscular Volume 96 80-99 fL Mean Corpuscular Hemoglobin 32 25-34 pg Mean Corpuscular Hemoglobin Concent 34 32-36 g/dL Red Cell Distribution Width 11.9 10.0-14.5 % Platelet Count 260 130-400 10^3/uL Mean Platelet Volume 9.2 9.0-12.2 fL Immature Granulocyte % (Auto) 0 % Neutrophils (%) (Auto) 43 42-75 % Lymphocytes (%) (Auto) 44 12-44 % Monocytes (%) (Auto) 11 0-12 % Eosinophils (%) (Auto) 2 0-10 % Basophils (%) (Auto) 1 0-10 % Neutrophils # (Auto) 2.9 1.8-7.8 10^3/uL Lymphocytes # (Auto) 2.9 1.0-4.0 10^3/uL Monocytes # (Auto) 0.7 0.0-1.0 10^3/uL Eosinophils # (Auto) 0.1 0.0-0.3 10^3/uL Basophils # (Auto) 0.0 0.0-0.1 10^3/uL Immature Granulocyte # (Auto) 0.0 0.0-0.1 10^3/uL Sodium Level 139 135-145 MMOL/L Potassium Level 3.7 3.6-5.0 MMOL/L Chloride Level 103 98-107 MMOL/L Carbon Dioxide Level 24 21-32 MMOL/L Anion Gap 12 5-14 MMOL/L Blood Urea Nitrogen 11 7-18 MG/DL Creatinine 0.90 0.60-1.30 MG/DL Estimat Glomerular Filtration Rate > 60 BUN/Creatinine Ratio 12 Glucose Level 97 70-105 MG/DL Calcium Level 9.5 8.5-10.1 MG/DL Corrected Calcium 9.3 8.5-10.1 MG/DL Total Bilirubin 0.4 0.1-1.0 MG/DL Aspartate Amino Transf (AST/SGOT) 27 5-34 U/L Alanine Aminotransferase (ALT/SGPT) 20 0-55 U/L Alkaline Phosphatase 69 40-136 U/L Total Protein 7.8 6.4-8.2 GM/DL Albumin 4.2 3.2-4.5 GM/DL Serum Test, Qualitative NEGATIVE NEGATIVE (JUANITA JACKMAN MD) Vital Signs/I&O 05/19/21 14:48 Temp 36.6 Pulse 91 Resp 16 B/P (MAP) 108/85 (93) Pulse Ox 100 O2 Delivery Room Air (JUANITA JACKMAN MD) Departure Impression Primary Impression: Nonspecific abdominal pain Additional Impression: Constipation Disposition: HOME, SELF-CARE Condition: Stable Departure-Patient Inst. Decision time for Depature: 14:45 (AVE GURROLA APRN) [place]errals: [facility] [place] Primary Care Physician Patient Instructions: Abdominal Pain, Adult ED Add. Discharge Instructions: 1. Return to ER for any concerns 2. Given the persistence of your symptoms you may wish to follow-up from gastroenterology: [facility] [address] [place] [address] Scripts Polyethylene Glycol 3350 (Miralax) 17 Gm Powd.pack 17 GM PO BID PRN for constipation, #14 EACH Prov: AVE GURROLA APRN 05/19/21 ATTENDING PHYSICIAN NOTE: I was physically present as attending physician in the emergency department during the care of this patient, but I was not directly involved in the decision making or delivery of care for this patient. (JUANITA JACKMAN MD) AVE GURROLA APRN May 19, 2021 14:45 JUANITA JACKMAN MD May 20, 2021 06:35
[2021-05-19 14:48] VITALS: BP 108/85
[2021-05-19 14:52] LABS: BILIRUBIN,URINE NEGATIVE (NEGATIVE); CLARITY,URINE CLEAR; COLOR,URINE YELLOW; GLUCOSE, URINE (UA) NEGATIVE (NEGATIVE); KETONES,URINE NEGATIVE (NEGATIVE); LEUKOCYTE ESTERASE ,URINE NEGATIVE (NEGATIVE); NITRITE,URINE NEGATIVE (NEGATIVE); PROTEIN,URINE NEGATIVE (NEGATIVE)
[2021-05-19 14:59] LABS: BASOPHILS % (AUTO) 1 % (0-10); EOSINOPHILS # (AUTO) 0.1 10^3/uL (0.0-0.3); EOSINOPHILS % (AUTO) 2 % (0-10); HEMATOCRIT 39 % (35-52); HEMOGLOBIN 13.1 g/dL (11.5-16.0); LYMPHOCYTES # (AUTO) 2.9 10^3/uL (1.0-4.0); LYMPHOCYTES % (AUTO) 44 % (12-44); MEAN CORPUSCULAR HEMOGLOBIN 32 pg (25-34); MEAN CORPUSCULAR HGB CONC 34 g/dL (32-36); MEAN CORPUSCULAR VOLUME 96 fL (80-99); MEAN PLATELET VOLUME 9.2 fL (9.0-12.2); MONOCYTES # (AUTO) 0.7 10^3/uL (0.0-1.0); MONOCYTES % (AUTO) 11 % (0-12); NEUTROPHILS # (AUTO) 2.9 10^3/uL (1.8-7.8); NEUTROPHILS % (AUTO) 43 % (42-75); PLATELET COUNT 260 10^3/uL (130-400); WHITE BLOOD COUNT 6.7 10^3/uL (4.3-11.0)
[2021-05-19 15:02] LABS: BACTERIA,URINE TRACE /HPF; RBC,URINE RARE /HPF; URINE OTHER N /HPF; WBC,URINE RARE /HPF
[2021-05-19 15:09] LABS: ALBUMIN 4.2 GM/DL (3.2-4.5); CHLORIDE 103 MMOL/L (98-107); POTASSIUM 3.7 MMOL/L (3.6-5.0); SODIUM 139 MMOL/L (135-145)
[2021-05-19 15:11] LABS: CALCIUM 9.5 MG/DL (8.5-10.1)
[2021-05-19 15:12] LABS: GLUCOSE 97 MG/DL (70-105); TOTAL PROTEIN 7.8 GM/DL (6.4-8.2)
[2021-05-19 15:13] LABS: CARBON DIOXIDE 24 MMOL/L (21-32)
[2021-05-19 15:14] LABS: BILIRUBIN,TOTAL 0.4 MG/DL (0.1-1.0)
[2021-05-19 15:15] LABS: ALKALINE PHOSPHATASE 69 U/L (40-136); GFR ESTIMATED > 60
[2021-05-19] MEDS ORDERED: IOHEXOL 350 MG/ML 100 ML (OMNIPAQUE 350) VIAL IV ONE (15:15)
[2021-05-19] MEDS ORDERED: HOLD METFORMIN - RECEIVED CONTRAST 20 ML VIAL IV SCH (15:15)
[2021-05-19] MEDS ORDERED: CATHETER FLUSH 10 ML SYR IV PRN (15:15)
[2021-05-19] MEDS ORDERED: NS 100 ML (IVPB) BAG IV ONE (15:15)
[2021-05-19 15:16] LABS: BUN/CREATININE RATIO 12
[2021-05-19 15:18] LABS: ALANINE AMINOTRANSFERASE 20 U/L (0-55)
--- NOTE | 2021-05-19 16:08 | Diagnostic Imaging Report ---
PROCEDURE: CT abdomen and pelvis with contrast. TECHNIQUE: Multiple contiguous axial images were obtained through the abdomen and pelvis after administration of intravenous contrast. Auto Exposure Controls were utilized during the CT exam to meet ALARA standards for radiation dose reduction. All CT scans use one or more of the following dose optimizing techniques: automated exposure control, MA and/or KvP adjustment based on patient size and exam type or iterative reconstruction. INDICATION: Suprapubic pain. COMPARISON: 04/23/2019. FINDINGS: Included portions of the lung bases are clear. CT ABDOMEN: Normal appendix is identified. Small bowel loops are nondistended. Moderate air and stool is seen scattered throughout the colon. The kidneys, adrenal glands, spleen, pancreas, and liver have a normal CT appearance. There is no loculated fluid collection, free fluid, nor free air within the abdomen. No abnormal mesenteric or retroperitoneal adenopathy is seen. The osseous structures show no acute abnormalities. CT PELVIS: Urinary bladder is unopacified. No calculi are seen within the urinary bladder. There is no loculated fluid collection, free fluid, nor free air. No abnormal lymph nodes are seen. The osseous structures show no acute abnormalities. IMPRESSION: 1. No acute abnormalities are seen within the abdomen or pelvis. 2. Moderate colonic air and stool. Please correlate for constipation. Dictated by: Dictated on workstation # [id number]
[2021-05-19] MEDS ORDERED: POLY17PO6 PO (16:13)
== END 2021-05-19 16:24 | disposition home or self-care (01) ==
LOC: EDUNIT# 14:24 → ER 14:26
DX: R10.32 Left lower quadrant pain (principal); R10.31 Right lower quadrant pain; K59.00 Constipation, unspecified; F41.9 Anxiety disorder, unspecified; Z79.899 Other long term (current) drug therapy
CPT/HCPCS: 36415; 74177; 80053; 81000; 84703; 85025